=== PATIENT | male | born 1990 | race Caucasian/White ===

== ENCOUNTER 2016-11-12 09:17 | Emergency (ER) | payer OTHER ==
--- NOTE | 2016-11-12 10:24 | ERPHSYRPT ---
- History of Present Illness Time Seen by Provider: 11/12/16 09:56 Source: patient Patient Subjective Stated Complaint: girlfriend recently dx with chlamydia. states they had intercourse before she was treated. wants checked for same today. denies any urinary c/o. Triage Nursing Assessment: to room per self. skin w/d, color normal. denies any urinary symptoms. Physician History: CC: chlamydia exposure HX: 26 y/o healthy male had unprotected intercourse with female who now has tested positive for chlamydia. He has no symptoms. No hx of STI in the past. No hx of IV drug use. He has had total of 12 female sexual partners. Normal urination. Activites at Onset: sexual activity Sexual intercourse history: unprotected intercourse Allergies/Adverse Reactions: No Known Drug Allergies Allergy (Unverified 11/12/16 09:26) Hx Tetanus, Diphtheria Vaccination/Date Given: No Hx Influenza Vaccination/Date Given: No Hx Pneumococcal Vaccination/Date Given: No Immunizations Up to Date: No - Past Medical History Pertinent Past Medical History: Yes Musculoskeletal History: Fractures Other Medical History: fx hand and wrist - Past Surgical History Past Surgical History: No - Social History Smoking Status: Current every day smoker How long have you smoked: 14 Exposure to second hand smoke: Yes Drug Use: marijuana Patient Lives Alone: No - Review of Systems Constitutional: No Fever Abdominal/Gastrointestinal: No Vomiting Genitourinary Symptoms: No Dysuria, No Frequency, No Testicle Pain Skin: No Rash - Nursing Vital Signs Nursing Vital Signs: Initial Vital Signs Temperature 98 F Temperature Source Oral Pulse Rate 94 Respiratory Rate 16 Blood Pressure [Right Arm] 140/90 Pain Intensity 0 - Physical Exam General Appearance: alert Eye Exam: PERRL/EOMI Ears, Nose, Throat Exam: moist mucous membranes Neck Exam: supple Respiratory Exam: normal breath sounds Cardiovascular Exam: regular rate/rhythm Gastrointestinal/Abdomen Exam: soft, No tenderness, No distention Male Genital Exam: normal genitalia, circumcised, No epididymal tenderness Back Exam: normal inspection Extremity Exam: normal inspection, normal range of motion Neurologic Exam: alert, oriented x 3, cooperative Skin Exam: warm, dry, No rash SpO2: 99 Oxygen Delivery: Room Air - Course Nursing assessment & vital signs reviewed: Yes - Progress Progress Note: 11/12/16 10:23 Discussed testing for other infections and he wants to obtain high risk profile. Explained results not available today and will need FP follow up. Advised no intercourse until both he and partner fully treated. He declines rocephin so will be treated with doxy. Counseled pt/family regarding: diagnosis, need for follow-up - Departure Time of Disposition: 10:24 Departure Disposition: Home Clinical Impression: Exposure to chlamydia Condition: Stable Critical Care Time: No Referrals: DOCTOR,NO FAMILY [Primary Care Provider] - Instructions: Chlamydia Additional Instructions: No intercourse until your and partner are fully treated. Family practice follow up for test results. Rx doxycycline. Prescriptions: Doxycycline Hyclate [Vibramycin] 1 cap PO BID #14 capsule
[2016-11-12 10:37] VITALS: BP 137/62; PULSE 87; O2SAT 96
[2016-11-12 14:48] LABS: CHLAMYDIA URINE NEGATIVE; GC URINE NEGATIVE
== END 2016-11-12 10:40 | disposition home or self-care (01) ==
LOC: ED 09:17
DX: Z20.828 Contact with and (suspected) exposure to other viral communicable diseases (principal)
CPT/HCPCS: 87491; 87591; 99282; 99283

== ENCOUNTER 2017-03-21 13:03 | Emergency (ER) | payer OTHER, SELFPAY ==
--- NOTE | 2017-03-21 13:32 | ERPHSYRPT ---
- History of Present Illness Time Seen by Provider: 03/21/17 13:07 Source: patient Patient Subjective Stated Complaint: PT STATES HE NOTICED A WOUND TO THE LEFT FOREARM. STATES X 2 DAYS DENIES FEVER. STATES HE HAS HAD SOME DRAINAGE FROM WOUND. Triage Nursing Assessment: PT ALERT WARM AND DRY RESP EASY NON LABORED. WOUND. RED AND WARM TO TOUCH. Physician History: CC: left forearm sore Hx: 26 y/o healthy patient of Dr Hernandez. He has a sore on the left forearm. Squeezed pus. Some redness. Took 2 amoxil last night. Tetanus utd. No fever or chills. Symptoms moderate. He is scared of needles. Severity: moderate Allergies/Adverse Reactions: No Known Drug Allergies Allergy (Unverified 11/12/16 09:26) Hx Tetanus, Diphtheria Vaccination/Date Given: Yes Hx Influenza Vaccination/Date Given: No Hx Pneumococcal Vaccination/Date Given: No Immunizations Up to Date: Yes - Review of Systems Constitutional: No Fever, No Chills Abdominal/Gastrointestinal: No Nausea, No Vomiting Skin: Skin Lesions (left forearm) Neurological: No Focal Weakness, No Parasthesia - Past Medical History Pertinent Past Medical History: Yes Musculoskeletal History: Fractures Other Medical History: ASTHMA - Past Surgical History Past Surgical History: No - Social History Smoking Status: Current every day smoker How long have you smoked: 7 YEARS. Exposure to second hand smoke: Yes Drug Use: none Patient Lives Alone: No - Nursing Vital Signs Nursing Vital Signs: Initial Vital Signs Temperature 98.0 F Temperature Source Oral Pain Intensity 0 - Physical Exam General Appearance: alert Eye Exam: PERRL/EOMI Ears, Nose, Throat Exam: moist mucous membranes Neck Exam: normal inspection, non-tender, supple Respiratory Exam: normal breath sounds Cardiovascular Exam: regular rate/rhythm Neurologic Exam: alert, oriented x 3, cooperative, sensation nml, No motor deficits Skin Exam: warm, dry, other (left forearm mild cutaneous abscess with redness. Minimal fluctuance. There is small eschar lesion.) - Course Nursing assessment & vital signs reviewed: Yes - Progress Progress Note: 03/21/17 13:33 Discussed abscess. Offered drainage but he is scared of needles and declines. Will treat with doxy and warm compresses. Counseled pt/family regarding: diagnosis, need for follow-up - Departure Time of Disposition: 13:34 Departure Disposition: Home Clinical Impression: Cutaneous abscess of extremity Qualifiers: Site of cutaneous abscess of extremity: upper extremity Laterality: left Qualified Code(s): L02.414 - Cutaneous abscess of left upper limb Condition: Stable Critical Care Time: No Referrals: MARKOS HERNANDEZ [ACTIVE STAFF] - Instructions: Methicillin-Resistant Staph Infection (MRSA), Cellulitis -- Adult Additional Instructions: Warm compresses 4 times a day. Rx doxycycline. Rx bactroban ointment for sore and to use in nose twice a day for one week. Tylenol as directed for discomfort. Return for fever, worsening or concerns. Do not poke the area with a needle or knife. Prescriptions: Doxycycline Hyclate [Vibramycin] 1 cap PO BID #20 capsule Mupirocin [Bactroban OINTMENT] 22 gm TP BID #1 tube
== END 2017-03-21 13:41 | disposition home or self-care (01) ==
LOC: ED 13:03
DX: L02.414 Cutaneous abscess of left upper limb (principal)
CPT/HCPCS: 99283; 99284

== ENCOUNTER 2024-03-17 17:24 | Emergency (ER) | payer OTHER, SELFPAY ==
[2024-03-17 17:42] VITALS: TEMP 97; O2SAT 100
[2024-03-17] MEDS: MOTRIN 600 MG PO ONE (18:09)
[2024-03-17] MEDS ORDERED: MOTRIN 600 MG ONE (18:09)
--- NOTE | 2024-03-17 18:11 | ERPHSYRPT ---
- History of Present Illness Time Seen by Provider: 03/17/24 17:25 Source: patient Exam Limitations: no limitations Patient Subjective Stated Complaint: pt here for pain to right hand injury, he states he punched a door frame x2 today Triage Nursing Assessment: pt alert, walked in, resp easy, skin w/d/p. has swelling and bruising to right hand, has abrasion to knuckles, has strong radial pulse Physician History: 33-year-old right-handed dominant male presented in the ER after he was angry at something 2 days ago and punched the door frame with the swelling and pain right hand fifth digit metacarpophalangeal joint area. Pain is moderate intensity sharp, aggravated with movements of the finger. Some tingly sensation at the fifth finger. Has some superficial abrasion. Up-to-date with tetanus. Swelling right hand dorsum medial aspect of fifth metacarpal phalangeal joint area. Painful movements at metacarpophalangeal joint and interphalangeal joint of fifth finger. Intact sensations and cap refill less than 3 seconds. Given ibuprofen for symptomatic relief as patient does not want any parenteral medications. X-rays right hand show fracture neck of fifth metacarpal with minimal angulation reviewed by me, official report is pending. Patient is placed in ulnar gutter for boxer's fracture and outpatient orthopedics follow-up recommended. Recommended Tylenol ibuprofen, ice application, discussed signs symptoms of worsening needing return to ER which she seems understanding. Allergies/Adverse Reactions: No Known Drug Allergies Allergy (Verified 03/17/24 17:34) Hx Tetanus, Diphtheria Vaccination/Date Given: No Hx Influenza Vaccination/Date Given: No Hx Pneumococcal Vaccination/Date Given: No Immunizations Up to Date: Yes Travel Risk - International Travel Have you traveled outside of the country in past 3 weeks: No - Emerging Infectious Disease Are you exhibiting symptoms associated with any current EIDs: No - Review of Systems Constitutional: No Symptoms Ears, Nose, & Throat: No Symptoms Respiratory: No Symptoms Cardiac: No Symptoms Genitourinary Symptoms: No Symptoms Musculoskeletal: Injury, Joint Pain, Joint Swelling Skin: No Symptoms Neurological: No Symptoms Endocrine: No Symptoms Hematologic/Lymphatic: No Symptoms - Past Medical History Pertinent Past Medical History: Yes Cardiac History: Hypertension Musculoskeletal History: Fractures GI Medical History: GERD Psycho-Social History: Bipolar Other Medical History: ASTHMA - Past Surgical History Past Surgical History: No - Social History Smoking Status: Current every day smoker How long have you smoked: 7 YEARS. Exposure to second hand smoke: Yes Drug Use: marijuana Patient Lives Alone: No - Social Determinants of Health Will the patient participate in the screening: Declined to provide - Nursing Vital Signs Nursing Vital Signs: Initial Vital Signs Temperature 97.0 F 03/17/24 17:40 Pulse Rate 87 03/17/24 17:40 Respiratory Rate 18 03/17/24 17:40 Blood Pressure 102/76 03/17/24 17:40 O2 Sat by Pulse Oximetry 100 03/17/24 17:40 Pain Scale Pain Intensity 3 - Physical Exam General Appearance: no apparent distress Neck Exam: normal inspection, full range of motion Cardiovascular/Respiratory Exam: normal breath sounds, regular rate/rhythm Hand Exam: bone tenderness (Right hand fifth metacarpal phalangeal joint area. No crepitus.), limited ROM, soft tissue tenderness, stiffness Neuro/Tendon Exam: normal sensation, normal motor functions, normal tendon fu nctions Mental Status Exam: alert, oriented x 3, cooperative Skin Exam: normal color SpO2 Interpretation: normal SpO2: 100 O2 Delivery: Room Air Ordered Tests: Active Orders 24 hr Category Date Time Status HAND (MINIMUM 3 VIEWS) Stat Exams 03/17/24 17:39 Taken - Progress Progress: pain not gone completely Progress Note: 03/17/24 18:14 33-year-old right-handed dominant male presented in the ER after he was angry at something 2 days ago and punched the door frame with the swelling and pain right hand fifth digit metacarpophalangeal joint area. Pain is moderate intensity sharp, aggravated with movements of the finger. Some tingly sensation at the fifth finger. Has some superficial abrasion. Up-to-date with tetanus. Swelling right hand dorsum medial aspect of fifth metacarpal phalangeal joint area. Painful movements at metacarpophalangeal joint and interphalangeal joint of fifth finger. Intact sensations and cap refill less than 3 seconds. Given ibuprofen for symptomatic relief as patient does not want any parenteral medications. X-rays right hand show fracture neck of fifth metacarpal with minimal angulation reviewed by me, official report is pending. Patient is placed in ulnar gutter fiberglass splint by RN for boxer's fracture and outpatient orthopedics follow-up recommended. Intact distal neurovascular after splint application. Recommended Tylenol ibuprofen, ice application, discussed signs symptoms of worsening needing return to ER which she seems understanding. Counseled pt/family regarding: diagnosis, need for follow-up, rad results Medical Desision Making - Independent Historian Additional History obtained from: Mother - Diagnostic Testing Diagnostic test were ordered, analyzed, and reviewed by me: Yes Radiological Interpretation: Interpreted by me, Reviewed by me - Risk of complications The pt has a mod risk of morbidity or mortality based on: Need for prescription drug management - Departure Departure Disposition: Home Clinical Impression: Boxers fracture Condition: Stable Critical Care Time: No Referrals: FIDELINA NEWBY MD [Primary Care Provider] - Follow up with PCP 1 day AMARIS DELA CRUZ MD [ACTIVE STAFF] - Follow up other (Call for appointment) Instructions: Boxer's Fracture (DC) Additional Instructions: Intermittent ice application. Tylenol/ibuprofen as needed for pain. Avoid exer tional activities. Follow-up with orthopedics for reevaluation. Return to ER for any worsening. Prescriptions: Ibuprofen 600 mg PO Q6HPRN PRN 10 Days #20 tablet PRN Reason: Pain
[2024-03-17 18:14] VITALS: BP 106/78; PULSE 78; RESP 16
--- NOTE | 2024-03-18 09:32 | XRAY ---
Indication: Pain following punching injury. Comparison: None 3 view right hand demonstrates minimally angulated fracture head 5th metacarpal. No other bony, articular, or soft tissue abnormalities.
== END 2024-03-17 18:27 | disposition home or self-care (01) ==
LOC: ED 17:24
DX: S62.336A Displaced fracture of neck of fifth metacarpal bone, right hand, initial encounter for closed fracture (principal); W22.01XA Walked into wall, initial encounter; I10 Essential (primary) hypertension; Z72.0 Tobacco use
CPT/HCPCS: 29125; 73130; 99283; A9270-GY